=== PATIENT | male | born 1935 | race Caucasian/White ===

== ENCOUNTER → 2016-11-23 | Outpatient (CLI) | payer OTHER, BC | LOC: MMPC 11:11 | PROVIDERS: ATTEND Internal Medicine | DX: R13.14 Dysphagia, pharyngoesophageal phase (principal); I48.0 Paroxysmal atrial fibrillation; Z95.2 Presence of prosthetic heart valve; Z79.01 Long term (current) use of anticoagulants; G20 Parkinson's disease; R97.20 Elevated prostate specific antigen [PSA] | CPT/HCPCS: 99215; G0463 ==

== ENCOUNTER → 2016-11-28 | Outpatient (CLI) | payer OTHER, BC ==
--- NOTE | 2016-11-28 12:15 | DI ---
XR ESOPHAGRAM,11/28/2016 9:16 AM: Clinical History: Dysphagia in the pharyngeal esophageal phase. Previous Exam: None at this facility. Findings: Multiple images are obtained as part of a esophagogram protocol, and were complicated by aspiration d uring the exam. Images of the esophagus demonstrate severe narrowing at the pharyngoesophageal junction. There is bentley e mild prominence of the cricopharyngeus muscle, but the majority of the narrowing appears to be due to a stricture which is narrowed in both the AP and lateral planes. The vallecula and perform sinuses are unremarkable. The gastroesophageal junction appears normal. The lung apices are clear. Diffuse degenerative changes of the cervical spine are seen. 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 This strictur e extends along the length of the esophagus approximately 2 cm.
== END ==
LOC: RAD 09:10
PROVIDERS: ATTEND Internal Medicine
DX: R13.14 Dysphagia, pharyngoesophageal phase (principal); K22.2 Esophageal obstruction
CPT/HCPCS: 74220